=== PATIENT | female | born 1975 | race Caucasian/White ===

== ENCOUNTER 2019-06-09 10:17 | Emergency (ER) | payer MEDICAID, OTHER ==
[~2019-06-09] VITALS: Ht 162.6 cm; Wt 54.5 kg
[~2019-06-09 10:17] MED LIST: CARB200T PO; CHLO25TA22 PO; CLIN-90 PO; CLIN150C8 PO; DIAZ10TA4 PO; GABA600T13 PO; HYDR-4353 PO; HYDR-4383 PO; METH-350 PO; MIRT15TA PO; ONDA4TAB12 PO; ONDA8TAB13 PO; PRAZ2CAP2 PO; RANI150C4 PO; TERA1CAP4 PO; TOP100T PO; VENL75TA4 PO; ZOLP10TA PO
[2019-06-09 10:31] VITALS: BP 138/77
[2019-06-09] MEDS ORDERED: penicillin G benzathine 1.2 million unit/2ml syringe IM ONE (12:40)
[2019-06-09] MEDS ORDERED: azithromycin 250mg tablet PO ONE (12:40)
[2019-06-09] MEDS ORDERED: acetaminophen 325mg tablet PO ONE (12:45)
[2019-06-09] MEDS ORDERED: LIDOcaine Viscous 15ml cup MM PRN (13:20)
--- NOTE | 2019-06-09 13:30 | NUR ---
PT requesting to wait before recieving second Penicillin injection, as she "cannot tolerate anymore" at the moment.
[2019-06-09 14:29] LABS: HIV ANTIBODY 1&2 RAPID NON-REACTIVE (Neg)
[2019-06-09 14:51] LABS: CLARITY,URINE CLOUDY (Clear); COLOR,URINE YELLOW (Yellow); GLUCOSE, URINE NEGATIVE (Neg); KETONES,URINE NEGATIVE (Neg); LEUKOCYTE ESTERASE ,URINE LARGE (Neg); NITRITES, URINE POSITIVE (Neg); OCCULT BLOOD,URINE SMALL (Neg); PH,URINE 5.5 (4.8-8.0); PROTEIN,URINE NEGATIVE (Neg); URINE HCG NEGATIVE (NEG)
[2019-06-09 14:52] LABS: UA COLLECTION TYPE CLN CATCH MIDSTREAM
--- NOTE | 2019-06-09 14:59 | NUR ---
Obtained new phone number to contact pt for results. Primary number is [phone] and an alternate as [phone]
[2019-06-09 15:06] LABS: BACTERIA,URINE 4+ /HPF (Neg); MUCUS STRANDS NONE SEEN /LPF (Neg); RBC,URINE NONE SEEN /HPF (0-2); SQUAMOUS EPITHELIAL CELL,UR MANY /LPF (FEW); WBC,URINE 50-100 /HPF (0-4)
[2019-06-11 09:09] LABS: RPR Reactive (Non Reactive)
== END 2019-06-09 15:00 | disposition home or self-care (01) ==
LOC: ER 10:18
DX: Z11.3 Encounter for screening for infections with a predominantly sexual mode of transmission (principal); R10.2 Pelvic and perineal pain; R21 Rash and other nonspecific skin eruption; J45.909 Unspecified asthma, uncomplicated; G89.29 Other chronic pain; F41.9 Anxiety disorder, unspecified; F12.90 Cannabis use, unspecified, uncomplicated; F15.90 Other stimulant use, unspecified, uncomplicated; Z87.442 Personal history of urinary calculi; Z86.14 Personal history of Methicillin resistant Staphylococcus aureus infection; Z86.69 Personal history of other diseases of the nervous system and sense organs; Z90.49 Acquired absence of other specified parts of digestive tract; Z98.51 Tubal ligation status; Z59.0 Homelessness; Z88.6 Allergy status to analgesic agent; Z88.5 Allergy status to narcotic agent; Z88.8 Allergy status to other drugs, medicaments and biological substances; Z79.899 Other long term (current) drug therapy
CPT/HCPCS: 36415; 81001; 81025; 86592; 86703; 87252; 87491; 87591; 96372; 99284; J0561

== ENCOUNTER 2021-03-24 16:45 | Emergency (ER) | payer MEDICAID, OTHER ==
[~2021-03-24] VITALS: Ht 162.6 cm; Wt 54.5 kg
[~2021-03-24 16:45] MED LIST changes: -CLIN-90 PO; +CLIN-97 PO; +MIRT-116 PO; -MIRT15TA PO
[2021-03-24] MEDS ORDERED: dexamethasone 4mg tablet PO ONE ×2 (19:00→19:05)
[2021-03-24] MEDS ORDERED: DEXAMETHASONE 6 MG TABLET PO ONE (19:05)
[2021-03-24] MEDS ORDERED: HYDR-3972 PO (19:12)
[2021-03-24] MEDS ORDERED: DOXY-135 PO (19:12)
[2021-03-24 19:29] VITALS: BP 138/80
== END 2021-03-24 19:31 | disposition home or self-care (01) ==
LOC: ER 16:46
DX: S71.101D Unspecified open wound, right thigh, subsequent encounter (principal); J45.909 Unspecified asthma, uncomplicated; G89.29 Other chronic pain; F41.9 Anxiety disorder, unspecified; F12.90 Cannabis use, unspecified, uncomplicated; F15.90 Other stimulant use, unspecified, uncomplicated; Z87.442 Personal history of urinary calculi; Z86.14 Personal history of Methicillin resistant Staphylococcus aureus infection; Z86.69 Personal history of other diseases of the nervous system and sense organs; Z90.89 Acquired absence of other organs; Z98.51 Tubal ligation status; Z59.0 Homelessness; Z88.8 Allergy status to other drugs, medicaments and biological substances; Z88.2 Allergy status to sulfonamides; Z88.5 Allergy status to narcotic agent; Z88.6 Allergy status to analgesic agent; Z79.2 Long term (current) use of antibiotics; Z79.899 Other long term (current) drug therapy; X58.XXXD Exposure to other specified factors, subsequent encounter
CPT/HCPCS: 99283; J8540

== ENCOUNTER 2022-11-18 06:15 | Emergency (ER) | payer MEDICAID ==
[~2022-11-18] VITALS: Ht 162.6 cm; Wt 47.2 kg
[~2022-11-18 06:15] MED LIST changes: -CHLO25TA22 PO; +CHLO25TA68 PO; +NALO4SPR BOTHNARES
[2022-11-18] MEDS ORDERED: clindamycin 150mg capsule PO ONE (07:25)
[2022-11-18] MEDS ORDERED: LIDOcaine 1% (10mg/ml) 2ml vial SQ STA (07:25)
[2022-11-18] MEDS ORDERED: acetaminophen 325mg tablet PO ONE (07:25)
[2022-11-18] MEDS ORDERED: LORazepam 1 MG tablet PO ONE (07:55)
[2022-11-18 08:17] LABS: BASOPHILS % (AUTO) 0.4 % (0-1); EOSINOPHILS # (AUTO) 0.1 X10'3 (0-0.9); EOSINOPHILS % (AUTO) 0.9 % (0-6); HEMATOCRIT 39.7 % (35.0-45.0); HEMOGLOBIN 13.3 g/dl (12.0-16.0); LYMPHOCYTES # (AUTO) 1.8 X10'3 (1.1-4.8); LYMPHOCYTES % (AUTO) 21.6 % (21-51); MEAN CORPUSCULAR HEMOGLOBIN 28.2 PG (27.0-31.0); MEAN CORPUSCULAR HGB CONC 33.6 g/dL (33.0-36.5); MEAN CORPUSCULAR VOLUME 83.9 FL (78-98); MEAN PLATELET VOLUME 9.5 FL (7.4-10.4); MONOCYTES # (AUTO) 0.9 X10'3 (0-0.9); MONOCYTES % (AUTO) 11.3 % (2-12); NEUTROPHILS # (AUTO) 5.4 X10'3 (1.8-7.7); NEUTROPHILS % (AUTO) 65.8 % (42-75); PLATELET COUNT 200 X10'3 (140-440); RED BLOOD COUNT 4.73 X10'6 (4.20-5.60); RED CELL DISTRIBUTION WIDTH 15.6 % (11.5-14.5); WHITE BLOOD COUNT 8.1 X10'3 (4.5-11.0)
[2022-11-18 08:34] LABS: ALANINE AMINOTRANSFERASE 19 U/L (12-78); ALBUMIN 3.2 G/DL (3.4-5.0); ALBUMIN/GLOBULIN RATIO 0.8 (1.1-1.5); ALKALINE PHOSPHATASE 85 IU/L (46-116); ANION GAP 6 (8-16); ASPARTATE AMINO TRANSFERASE 11 U/L (10-37); BILIRUBIN,TOTAL 1.1 MG/DL (0.1-1.0); BLOOD UREA NITROGEN 7 MG/DL (7-18); BUN/CREATININE RATIO 12.1 (10.0-20.0); CALCIUM 9.2 MG/DL (8.5-10.1); CHLORIDE 101 MMOL/L (99-107); CREATININE 0.58 MG/DL (0.40-0.90); GLUCOSE 103 MG/DL (70-104); POTASSIUM 3.8 MMOL/L (3.5-5.1); SODIUM 135 MMOL/L (135-145); TOTAL CARBON DIOXIDE 28.2 MMOL/L (24-32); eGFR > 90 ML/MIN
[2022-11-18] MEDS ORDERED: CLIN150C2 PO (08:46)
[2022-11-18] MEDS ORDERED: CLINDAMYCIN 600mg IN NS 50ML 50 ML IV STA (09:12)
[2022-11-18 09:17] VITALS: BP 108/72
[2022-11-18] MEDS ORDERED: clindamycin 600mg/D5W 50ml 0 ML IV ONE (09:25)
[2022-11-18] MEDS ORDERED: CLINDAMYCIN IV ONE (09:30)
[2022-11-18] MEDS ORDERED: [UNRECOGNIZED DRUG - OTHER] IV ONE (09:30)
[2022-11-18] MEDS ORDERED: ibuprofen tablet 400 MG TABLET PO ONE (09:45)
== END 2022-11-18 10:17 | disposition home or self-care (01) ==
LOC: ER 06:16
DX: L03.213 Periorbital cellulitis (principal); J44.9 Chronic obstructive pulmonary disease, unspecified; F12.90 Cannabis use, unspecified, uncomplicated; F15.20 Other stimulant dependence, uncomplicated; R11.2 Nausea with vomiting, unspecified; Z59.00 Homelessness unspecified; Z88.5 Allergy status to narcotic agent; Z88.6 Allergy status to analgesic agent; Z88.2 Allergy status to sulfonamides; Z91.041 Radiographic dye allergy status; Z98.51 Tubal ligation status
CPT/HCPCS: 10060; 36415; 71045; 80053; 83605; 84484; 85025; 93005; 96365; 99285; J3490; J7030; A6410; A6449

== ENCOUNTER 2023-05-02 20:24 | Inpatient (IN) | payer MEDICAID, OTHER ==
[~2023-05-02] VITALS: Ht 162.6 cm; Wt 50.0 kg
[~2023-05-02 20:24] MED LIST changes: +CLIN-214 PO; -CLIN150C8 PO; -MIRT-116 PO; +MIRT-142 PO
[2023-05-02] MEDS ORDERED: HYDROcodone/acetaminophen 10/325mg tab PO STA (20:29)
[2023-05-02] MEDS ORDERED: piperacillin/tazo 3.375gm/50ml 50 ML IV STA (20:33)
[2023-05-02] MEDS ORDERED: vancomycin/NS 1 GM ADD-VANTAGE 250 ML IV ONE (20:35)
[2023-05-02] MEDS ORDERED: normal saline 1000ML IV soln IVB ONE ×2 (21:50)
[2023-05-02 22:41] LABS: BASOPHILS # (AUTO) 0.1 X10'3 (0-0.2); BASOPHILS % (AUTO) 0.7 % (0-1); EOSINOPHILS # (AUTO) 0.1 X10'3 (0-0.9); EOSINOPHILS % (AUTO) 0.5 % (0-6); HEMATOCRIT 40.4 % (35.0-45.0); HEMOGLOBIN 13.2 g/dl (12.0-16.0); LYMPHOCYTES # (AUTO) 2.1 X10'3 (1.1-4.8); LYMPHOCYTES % (AUTO) 19.1 % (21-51); MEAN CORPUSCULAR HEMOGLOBIN 28.1 PG (27.0-31.0); MEAN CORPUSCULAR HGB CONC 32.7 g/dL (33.0-36.5); MEAN CORPUSCULAR VOLUME 85.7 FL (78-98); MEAN PLATELET VOLUME 8.9 FL (7.4-10.4); MONOCYTES # (AUTO) 0.8 X10'3 (0-0.9); MONOCYTES % (AUTO) 7.8 % (2-12); NEUTROPHILS # (AUTO) 7.7 X10'3 (1.8-7.7); NEUTROPHILS % (AUTO) 71.9 % (42-75); PLATELET COUNT 309 X10'3 (140-440); RED BLOOD COUNT 4.71 X10'6 (4.20-5.60); RED CELL DISTRIBUTION WIDTH 14.2 % (11.5-14.5); WHITE BLOOD COUNT 10.8 X10'3 (4.5-11.0)
[2023-05-02 22:49] LABS: ALANINE AMINOTRANSFERASE 27 U/L (12-78); ALBUMIN/GLOBULIN RATIO 0.6 (1.1-1.5); ALKALINE PHOSPHATASE 96 IU/L (46-116); ANION GAP 6 (8-16); ASPARTATE AMINO TRANSFERASE 24 U/L (10-37); BILIRUBIN,TOTAL 1.3 MG/DL (0.1-1.0); BLOOD UREA NITROGEN 9 MG/DL (7-18); BUN/CREATININE RATIO 15.5 (10.0-20.0); CALCIUM 9.8 MG/DL (8.5-10.1); CHLORIDE 101 MMOL/L (99-107); CREATININE 0.58 MG/DL (0.40-0.90); GLUCOSE 141 MG/DL (70-104); MAGNESIUM 2.2 MG/DL (1.5-2.4); SODIUM 134 MMOL/L (135-145); TOTAL CARBON DIOXIDE 27.2 MMOL/L (24-32); TOTAL PROTEIN 7.7 G/DL (6.4-8.2); eCRCL 95 ML/MIN; eGFR > 90 ML/MIN
[2023-05-02 23:00] LABS: POTASSIUM 2.7 MMOL/L (3.5-5.1)
[2023-05-02] MEDS ORDERED: POTASSIUM BICARB 20meq eff tab 20 MEQ TABLET.EFF PO STA (23:01)
[2023-05-02] MEDS ORDERED: HYDROcodone/acetaminophen 10/325mg tab PO ONE (23:20)
[2023-05-03 01:31] LABS: URINE HCG NEGATIVE (NEG)
[2023-05-03 01:38] LABS: BILIRUBIN,URINE NEGATIVE (Neg); COLOR,URINE YELLOW (Yellow); GLUCOSE, URINE NEGATIVE (Neg); KETONES,URINE NEGATIVE (Neg); LEUKOCYTE ESTERASE ,URINE TRACE (Neg); NITRITES, URINE POSITIVE (Neg); OCCULT BLOOD,URINE NEGATIVE (Neg); PH,URINE 6.5 (4.8-8.0); PROTEIN,URINE NEGATIVE (Neg)
[2023-05-03 01:45] LABS: UA COLLECTION TYPE CLN CATCH MIDSTREAM
[2023-05-03 01:47] LABS: CLARITY,URINE SLIGHTLY CLOUDY (Clear)
[2023-05-03 01:48] LABS: BACTERIA,URINE 2+ /HPF (Neg); SQUAMOUS EPITHELIAL CELL,UR FEW /LPF (FEW); WBC CLUMPS,URINE FEW /HPF (NEGATIVE)
[2023-05-03 01:50] LABS: URINE AMPHETAMINE SCREEN POSITIVE (Neg); URINE BARBITUATE SCREEN NEGATIVE (Neg); URINE BENZODIAZEPINES SCREEN NEGATIVE (Neg); URINE CANNABINOID SCREEN NEGATIVE (Neg); URINE COCAINE SCREEN NEGATIVE (Neg); URINE OPIATE SCREEN POSITIVE (Neg); URINE PHENCYCLIDINE SCREEN NEGATIVE (Neg)
[2023-05-03] MEDS ORDERED: nicotine 21mg patch - 24 hr TD ONE (02:55)
[2023-05-03] MEDS ORDERED: HYDROmorphone inj. 0.5 MG/0.5 ML DISP.SYRIN IV PRN (03:15)
[2023-05-03] MEDS ORDERED: metoclopramide 5 mg/ml inj IV PRN (03:50)
[2023-05-03] MEDS ORDERED: ondansetron/PF 4mg/2ml inj IV PRN (03:50)
[2023-05-03] MEDS ORDERED: acetaminophen 325mg tablet PO PRN (03:50)
[2023-05-03] MEDS ORDERED: magnesium hydroxide 30ml (MOM) UD suspension PO PRN (03:50)
[2023-05-03] MEDS ORDERED: mag hydrox/Alum hydrox/simeth 30ml oral suspension PO PRN (03:50)
[2023-05-03] MEDS ORDERED: acetaminophen 650mg rectal suppository RC PRN (03:50)
[2023-05-03] MEDS ORDERED: diphenhydrAMINE 25mg capsule PO PRN (03:50)
[2023-05-03] MEDS ORDERED: ondansetron 4mg rapidly disintigrating tab PO PRN (03:50)
[2023-05-03] MEDS ORDERED: potassium Cl 40MEQ/1/2NS 520ml 520 ML IV PRN (03:50)
[2023-05-03] MEDS ORDERED: diphenhydrAMINE 50 mg/ml inj IV PRN (03:50)
[2023-05-03] MEDS ORDERED: bisacodyl 10mg suppository rectal RC PRN (03:50)
[2023-05-03] MEDS ORDERED: piperacillin/tazo 4.5gm/100ml 100 ML IV SCH (04:00)
[2023-05-03] MEDS ORDERED: TETanus/Pertussis (Acell)/Diphther VAC/PF (Tdap-Adult) 0.5ml syringe IMVAC ONE (04:05)
[2023-05-03] MEDS: potassium Cl 20mEq in NS 1,000 ML IV SCH ×2 (04:26→13:50)
[2023-05-03] MEDS ORDERED: temazepam 15mg capsule PO STA (04:34)
[2023-05-03] MEDS: HYDROmorphone 1 mg/ml syringe IV PRN ×4 (06:17→19:53)
--- NOTE | 2023-05-03 07:45 | NUR ---
Paged Dr. Jeremiah Sanchez RN RE: Yancy Cohen. Just want to follow up if this patient had surgical consultation yet. Right index finger is pale, tender, swollen, no sensation on the right index finger, and blackish in color .
[2023-05-03] MEDS ORDERED: vancomycin/NS 1 GM ADD-VANTAGE 250 ML IV SCH (08:00)
[2023-05-03] MEDS: nicotine 21mg patch - 24 hr TD SCH (08:00)
[2023-05-03] MEDS: K and/or MAG REPLACEMENT MC SCH ×2 (08:00→20:37)
[2023-05-03 08:15] LABS: APTT 30 SECONDS (22-32); INR 0.9 INR; PROTHROMBIN TIME 10.1 SECONDS (9.0-12.0)
[2023-05-03 08:32] LABS: MAGNESIUM 1.9 MG/DL (1.5-2.4); PHOSPHORUS 3.6 MG/DL (2.3-4.5); POTASSIUM 3.2 MMOL/L (3.5-5.1)
[2023-05-03] MEDS: ampicill/sulbac 1.5gm/NS 100ml 100 ML IV SCH ×3 (08:40→19:42)
[2023-05-03] MEDS: docusate sod 100mg capsule PO SCH ×2 (08:44→19:42)
--- NOTE | 2023-05-03 11:59 | NUR ---
Attempted to call for report to the floor, I was told that this patient has not assigned yet to a nurse.
--- NOTE | 2023-05-03 12:17 | NUR ---
DR. BERGMAN CALLED FOR CONDITION REPORT AND TO SEE IF PATIENT IS NPO. PATIENT IS EATING GUMMY BEARS AND STATES SHE DID NOT KNOW THAT SHE WAS NPO. DR. BERGMAN STATES THAT WE SHOULD KEEP PATIENT NPO AFTER MIDNIGHT AND WILL BE GOING TO SURGERY IN THE MORNING. PATIENT INFORMED OF THIS STATUS AND THAT SHE CAN EAT UNTIL MIDNIGHT TONIGHT.
--- NOTE | 2023-05-03 12:37 | NUR ---
Note navin in EDM - 05/03/23 at 1240 by ROSMERY I called Angio/IR to follow up regarding order for arthrocentesis that was ordered. Spencer and Black at IR both told me that the order category should say angio for them to do it. I was advised to pick the arthrogram and make a side comment about the arthrocentesis
--- NOTE | 2023-05-03 13:40 | NUR ---
Received order for consult. Tried to meet with patient and unable to wake her. I will try again.
--- NOTE | 2023-05-03 14:00 | NUR ---
Patient in room ORTHO 4017. I have received report from Judit BELL and had the opportunity to ask questions and assume patient care.
[2023-05-03] MEDS ORDERED: NO HOME MEDS (15:05)
[2023-05-03 15:55] VITALS: BP 114/70; PULSE 99; RESP 16; TEMP 99.1; O2SAT 100
[2023-05-03 15:56] VITALS: RESP 16; O2SAT 100
--- NOTE | 2023-05-03 17:21 | NUR ---
rm [id number] rayna maddox ext [phone] Pt is extremely anxious can I get something for anxiety? Thanks Charlene
[2023-05-03] MEDS ORDERED: LORazepam 1 MG tablet PO ONE (17:25)
[2023-05-03 18:00] VITALS: BP 103/58; PULSE 97; RESP 16; TEMP 98.3; O2SAT 100
[2023-05-03 20:00] VITALS: RESP 16; O2SAT 100
[2023-05-03 22:00] VITALS: BP 121/64; PULSE 98; RESP 18; TEMP 98.2; O2SAT 100
[2023-05-03] MEDS: temazepam 15mg capsule PO PRN (23:41)
[2023-05-03] MEDS: potassium Cl 20 mEq SR tablet PO PRN (23:41)
[2023-05-03] MEDS: acetaminophen 325mg tablet PO PRN (23:42)
[2023-05-04] VITALS (20 sets, daily range): BP systolic 103–150; BP diastolic 54–91; PULSE 69–100; RESP 12–18; TEMP 97.9–98.8; O2SAT 93–100
[2023-05-04] MEDS: potassium Cl 20mEq in NS 1,000 ML IV SCH ×3 (00:15→19:50)
[2023-05-04] MEDS: HYDROmorphone 1 mg/ml syringe IV PRN ×5 (00:15→22:14)
[2023-05-04] MEDS: ampicill/sulbac 1.5gm/NS 100ml 100 ML IV SCH ×4 (02:04→20:49)
[2023-05-04 05:52] LABS: BASOPHILS % (AUTO) 0.5 % (0-1); EOSINOPHILS # (AUTO) 0.1 X10'3 (0-0.9); EOSINOPHILS % (AUTO) 0.9 % (0-6); HEMATOCRIT 39.4 % (35.0-45.0); LYMPHOCYTES # (AUTO) 2.1 X10'3 (1.1-4.8); LYMPHOCYTES % (AUTO) 22.7 % (21-51); MEAN CORPUSCULAR HEMOGLOBIN 28.1 PG (27.0-31.0); MEAN CORPUSCULAR VOLUME 85.2 FL (78-98); MEAN PLATELET VOLUME 9.3 FL (7.4-10.4); MONOCYTES # (AUTO) 0.9 X10'3 (0-0.9); MONOCYTES % (AUTO) 9.5 % (2-12); NEUTROPHILS # (AUTO) 6.2 X10'3 (1.8-7.7); NEUTROPHILS % (AUTO) 66.4 % (42-75); PLATELET COUNT 338 X10'3 (140-440); RED BLOOD COUNT 4.63 X10'6 (4.20-5.60); RED CELL DISTRIBUTION WIDTH 14.2 % (11.5-14.5); WHITE BLOOD COUNT 9.4 X10'3 (4.5-11.0)
[2023-05-04 05:58] LABS: PRE OP PARTIAL THROMB. TIME 31 SECONDS (22-32); PROTHROMBIN TIME 10.5 SECONDS (9.0-12.0)
[2023-05-04 06:00] LABS: ALBUMIN 2.9 G/DL (3.4-5.0); ALBUMIN/GLOBULIN RATIO 0.6 (1.1-1.5); ALKALINE PHOSPHATASE 96 IU/L (46-116); BLOOD UREA NITROGEN 8 MG/DL (7-18); BUN/CREATININE RATIO 19.5 (10.0-20.0); CALCIUM 9.5 MG/DL (8.5-10.1); CHLORIDE 105 MMOL/L (99-107); CREATININE 0.41 MG/DL (0.40-0.90); PRE OP ALT 25 U/L (30-65); PRE OP ANION GAP 8 (8-16); PRE OP AST 17 U/L (10-37); PRE OP BILIRUB, TOTAL 0.7 MG/DL (0.0-1.0); PRE OP GLUCOSE 95 MG/DL (70-104); PRE OP SODIUM 137 MMOL/L (135-145); TOTAL PROTEIN 7.4 G/DL (6.4-8.2); eCRCL 134 ML/MIN; eGFR > 90 ML/MIN
[2023-05-04 06:10] LABS: PRE OP POTASSIUM 3.3 MMOL/L (3.4-5.1)
--- NOTE | 2023-05-04 06:34 | NUR ---
Problems reprioritized. Patient report given, questions answered & plan of care reviewed with ANA BELL.
[2023-05-04] MEDS: docusate sod 100mg capsule PO SCH ×2 (07:30→20:00)
[2023-05-04] MEDS: nicotine 21mg patch - 24 hr TD SCH (07:33)
[2023-05-04] MEDS: potassium Cl 20 mEq SR tablet PO PRN ×3 (07:34→19:54)
[2023-05-04] MEDS: K and/or MAG REPLACEMENT MC SCH ×2 (08:00→20:47)
--- NOTE | 2023-05-04 09:44 | NUR ---
Malnutrition consult: Pt reports 2-13 lb wt loss with decreased appetite/PO intake per malnutrition risk screen with RN. Current scaled weight is +2.8 kg from most recent scaled wt hx in EMR of 47.2 kg 11/18-no apparent wt loss. Pt on a regular diet and eating well, documented with 100% PO intake. Only documented mild decrease in muscle strength and trace edema is to right hand where pt has an abscess/cellulitis. Pt appears well developed well nourished per physician notes. Pt currently lacks a minimum of two criteria for malnutrition. Will continue to follow and monitor s/s of malnutrition. Addendum: 05/04/23 at [address] Amended: Links added.
[2023-05-04] MEDS ORDERED: LORazepam 2 mg/ml vial IV ONE (13:10)
--- NOTE | 2023-05-04 16:54 | NUR ---
Patient report called to OR. K has been replaced fully today. Patient with Pacheco patch on left upper arm. LR hanging.
[2023-05-04] MEDS ORDERED: BUPIVAcaine/PF 2.5mg/ml (0.25%) 10ml vial ONE (16:58)
--- NOTE | 2023-05-04 18:50 | NUR ---
Patient in room ORTHO 4017. I have received report from ANA BELL and had the opportunity to ask questions and assume patient care.
--- NOTE | 2023-05-04 18:52 | NUR ---
PATIENT TAKE TO OR
[2023-05-04] MEDS ORDERED: sevoflurane 250ml liquid IH ONE (19:16)
[2023-05-04] MEDS ORDERED: fentaNYL/PF 50MCG/1 ML 2ML syringe ONE ×2 (19:19→19:30)
[2023-05-04] MEDS ORDERED: propofol inj 20 ML IV ONE (19:19)
[2023-05-04] MEDS ORDERED: midazolam 1 mg/ML 2ml injection ONE (19:19)
--- NOTE | 2023-05-04 20:04 | NUR ---
Received from OR via , accompanied by Anesthesiologist SALEEM and report given by Anesthesiolgist. PT AWAKE AND MOANING, ANESTHESIA GAVE PAIN MED. MOVING EXT X 4, LEFT HAND PIV 20G WITH LR 100ML/HR, RIGHT FA 22G SL, RIGHT INDEX FINGER WITH KERLIX AND KELI.
[2023-05-04] MEDS ORDERED: ondansetron/PF 4mg/2ml inj IV PRN (20:15)
[2023-05-04] MEDS ORDERED: ringers solution, lacted 1,000 ML IV SCH (20:15)
[2023-05-04] MEDS ORDERED: meperidine/PF 25mg/ml syringe IV PRN ×3 (20:15)
[2023-05-04] MEDS ORDERED: HYDROmorphone/PF 0.2 MG/ML SYRINGE IV PRN (20:15)
[2023-05-04] MEDS: HYDROmorphone/PF 0.2 MG/ML SYRINGE IV PRN ×2 (20:28→20:42)
--- NOTE | 2023-05-04 20:32 | NUR ---
Report called to receiving nurse. Transferred via BED Belongings . Special Issues communicated to receiving nurse PRUDENCE. PT IS AWAKE, ALERT, APPEARING MORE COMFORTABLE NOTED BY IMPROVED VS AND NOT WRITHING IN BED, DRESSING ON RIGHT INDEX CD, PIV PATENT, DAWOOD FLUIDS, PT MEETS DISCHARGE CRITERIA.
--- NOTE | 2023-05-04 20:40 | NUR ---
PATIENT BACK FROM OR. VS STABLE AND WILL CONTINUE TO MONITOR.
[2023-05-04] MEDS: temazepam 15mg capsule PO PRN (22:13)
[2023-05-04] MEDS: acetaminophen 325mg tablet PO PRN (23:31)
[2023-05-05] VITALS (7 sets, daily range): BP systolic 125–139; BP diastolic 70–82; PULSE 76–95; RESP 16–18; TEMP 97.9–99.1; O2SAT 95–100
[2023-05-05] MEDS: HYDROmorphone 1 mg/ml syringe IV PRN ×2 (00:26→05:05)
[2023-05-05] MEDS: potassium Cl 20mEq in NS 1,000 ML IV SCH ×2 (00:26→14:31)
[2023-05-05] MEDS: ampicill/sulbac 1.5gm/NS 100ml 100 ML IV SCH ×4 (02:08→20:37)
[2023-05-05 06:24] LABS: BASOPHILS # (AUTO) 0.1 X10'3 (0-0.2); BASOPHILS % (AUTO) 0.7 % (0-1); EOSINOPHILS # (AUTO) 0.1 X10'3 (0-0.9); EOSINOPHILS % (AUTO) 1.2 % (0-6); HEMATOCRIT 39.1 % (35.0-45.0); HEMOGLOBIN 12.9 g/dl (12.0-16.0); LYMPHOCYTES # (AUTO) 1.8 X10'3 (1.1-4.8); LYMPHOCYTES % (AUTO) 18.7 % (21-51); MEAN CORPUSCULAR HEMOGLOBIN 28.6 PG (27.0-31.0); MEAN CORPUSCULAR HGB CONC 33.1 g/dL (33.0-36.5); MEAN CORPUSCULAR VOLUME 86.3 FL (78-98); MEAN PLATELET VOLUME 8.6 FL (7.4-10.4); MONOCYTES # (AUTO) 0.7 X10'3 (0-0.9); MONOCYTES % (AUTO) 7.5 % (2-12); NEUTROPHILS # (AUTO) 6.8 X10'3 (1.8-7.7); NEUTROPHILS % (AUTO) 71.9 % (42-75); PLATELET COUNT 347 X10'3 (140-440); RED BLOOD COUNT 4.53 X10'6 (4.20-5.60); RED CELL DISTRIBUTION WIDTH 14.1 % (11.5-14.5); WHITE BLOOD COUNT 9.5 X10'3 (4.5-11.0)
--- NOTE | 2023-05-05 06:25 | NUR ---
Patient in room ORTHO 4017. I have received report from ARABELLA Ames and had the opportunity to ask questions and assume patient care.
[2023-05-05 06:45] LABS: ALANINE AMINOTRANSFERASE 16 U/L (12-78); ALBUMIN 2.6 G/DL (3.4-5.0); ALBUMIN/GLOBULIN RATIO 0.6 (1.1-1.5); ALKALINE PHOSPHATASE 92 IU/L (46-116); ANION GAP 8 (8-16); ASPARTATE AMINO TRANSFERASE 11 U/L (10-37); BILIRUBIN,TOTAL 0.6 MG/DL (0.1-1.0); BLOOD UREA NITROGEN 8 MG/DL (7-18); BUN/CREATININE RATIO 15.1 (10.0-20.0); CALCIUM 9.3 MG/DL (8.5-10.1); CHLORIDE 105 MMOL/L (99-107); CREATININE 0.53 MG/DL (0.40-0.90); GLUCOSE 136 MG/DL (70-104); POTASSIUM 3.8 MMOL/L (3.5-5.1); SODIUM 135 MMOL/L (135-145); TOTAL PROTEIN 7.1 G/DL (6.4-8.2); eCRCL 104 ML/MIN; eGFR > 90 ML/MIN
--- NOTE | 2023-05-05 06:47 | NUR ---
Problems reprioritized. Patient report given, questions answered & plan of care reviewed with TIAN GLYNN.
[2023-05-05] MEDS: docusate sod 100mg capsule PO SCH ×2 (07:32→20:00)
[2023-05-05] MEDS: nicotine 21mg patch - 24 hr TD SCH (07:32)
[2023-05-05] MEDS: K and/or MAG REPLACEMENT MC SCH ×2 (08:00→20:00)
[2023-05-05] MEDS: HYDROmorphone/PF 0.2 MG/ML SYRINGE IV PRN (08:26)
[2023-05-05] MEDS ORDERED: HYDROmorphone 1 mg/ml syringe IV ONE (09:35)
[2023-05-05] MEDS: HYDROmorphone inj. 0.5 MG/0.5 ML DISP.SYRIN IV PRN ×2 (14:07→20:34)
--- NOTE | 2023-05-05 18:25 | NUR ---
Problems reprioritized. Patient report given, questions answered & plan of care reviewed with GRETTA Valdes.
--- NOTE | 2023-05-05 18:30 | NUR ---
Received report from Baldo GLYNN and assumed care of patient
[2023-05-05] MEDS: HYDROcodone/acetaminophen 10/325mg tab PO PRN ×2 (18:57→23:04)
--- NOTE | 2023-05-05 19:36 | NUR ---
Pt reporting intense anxiety, requesting PRN medication. Spoke with Dr. Charlton by telephone and received order for Ativan 0.5mg Q8H PRN
[2023-05-05] MEDS: LORazepam 0.5 MG tablet PO PRN (20:09)
[2023-05-05] MEDS: temazepam 15mg capsule PO PRN (23:07)
[2023-05-06] MEDS: HYDROmorphone inj. 0.5 MG/0.5 ML DISP.SYRIN IV PRN (00:57)
[2023-05-06] MEDS: potassium Cl 20mEq in NS 1,000 ML IV SCH ×2 (01:01→11:50)
[2023-05-06] MEDS: ampicill/sulbac 1.5gm/NS 100ml 100 ML IV SCH ×3 (02:05→14:00)
[2023-05-06] MEDS: HYDROcodone/acetaminophen 10/325mg tab PO PRN ×3 (03:14→14:00)
[2023-05-06] MEDS: HYDROmorphone 1 mg/ml syringe IV PRN ×3 (04:44→15:34)
[2023-05-06 06:00] VITALS: BP 143/89; PULSE 93; RESP 17; TEMP 98.9; O2SAT 100
[2023-05-06 06:41] LABS: LYMPHOCYTES # (AUTO) 2.6 X10'3 (1.1-4.8); MEAN CORPUSCULAR HEMOGLOBIN 28.1 PG (27.0-31.0); MEAN CORPUSCULAR HGB CONC 33.1 g/dL (33.0-36.5); MEAN CORPUSCULAR VOLUME 84.9 FL (78-98); MEAN PLATELET VOLUME 8.4 FL (7.4-10.4); MONOCYTES # (AUTO) 0.6 X10'3 (0-0.9); NEUTROPHILS # (AUTO) 4.1 X10'3 (1.8-7.7)
[2023-05-06 06:43] LABS: BASOPHILS % (AUTO) 0.6 % (0-1); EOSINOPHILS # (AUTO) 0.1 X10'3 (0-0.9); EOSINOPHILS % (AUTO) 1.8 % (0-6); HEMATOCRIT 38.3 % (35.0-45.0); HEMOGLOBIN 12.7 g/dl (12.0-16.0); LYMPHOCYTES % (AUTO) 34.7 % (21-51); MONOCYTES % (AUTO) 8.3 % (2-12); NEUTROPHILS % (AUTO) 54.6 % (42-75); PLATELET COUNT 357 X10'3 (140-440); RED BLOOD COUNT 4.52 X10'6 (4.20-5.60); WHITE BLOOD COUNT 7.5 X10'3 (4.5-11.0)
--- NOTE | 2023-05-06 06:44 | NUR ---
Report to Lis BELL
[2023-05-06 07:03] LABS: ALANINE AMINOTRANSFERASE 17 U/L (12-78); ALBUMIN 2.5 G/DL (3.4-5.0); ALBUMIN/GLOBULIN RATIO 0.6 (1.1-1.5); ALKALINE PHOSPHATASE 85 IU/L (46-116); ANION GAP 7 (8-16); ASPARTATE AMINO TRANSFERASE 10 U/L (10-37); BILIRUBIN,TOTAL 0.4 MG/DL (0.1-1.0); BLOOD UREA NITROGEN 7 MG/DL (7-18); CHLORIDE 106 MMOL/L (99-107); GLUCOSE 96 MG/DL (70-104); POTASSIUM 3.7 MMOL/L (3.5-5.1); SODIUM 138 MMOL/L (135-145); TOTAL PROTEIN 6.8 G/DL (6.4-8.2); eCRCL 110 ML/MIN; eGFR > 90 ML/MIN
[2023-05-06] MEDS: docusate sod 100mg capsule PO SCH (08:00)
[2023-05-06] MEDS: K and/or MAG REPLACEMENT MC SCH (08:00)
[2023-05-06] MEDS: nicotine 21mg patch - 24 hr TD SCH (09:10)
[2023-05-06] MEDS: LORazepam 0.5 MG tablet PO PRN (10:48)
--- NOTE | 2023-05-06 12:52 | NUR ---
The following was taken from the patients H&P: This is a 48 year old female presents to ED for evaluation of dog bite to right index finger. History of methamphetamine use, chronic tobacco use, and fentanyl abuse, hypertension, COPD, CKD, chronic pain syndrome, GERD, seizure disorder, hepatitis C, migraine headaches, and prior dog bites. Her most recent lab shows: WBC 7.5, HGB 12.7, BUN 7, BG 96, and albumin 2.5. Urine toxicology report: positive for opiates, fentanyl, and amphetamines. Pt. was admitted for the management of a dog bite. Wound care in for skin assessment of right index finger cellulitis per nursing consult request. Pt. 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 Operative report: Pt. seen back at clinic, [facility] in 2 weeks for wound check and removal of her sutures. She is to keep her wound covered clean and dry until her follow up visit per operative report. Pt. does not require wound care at this time due to surgical intervention and no open wounds at this time.
[2023-05-06] MEDS ORDERED: HYDR-3972 PO (13:37)
[2023-05-06] MEDS ORDERED: LACTC PO (13:37)
[2023-05-06] MEDS ORDERED: AMOX-117 PO (13:37)
--- NOTE | 2023-05-06 14:30 | NUR ---
AGER ID: [phone] MESSAGE: Yancy Noel [id number] Cant discharge without wound care orders and shower orders from surgeon/ Doe. Unable to reach him and according to pt. he rounded early this AM. Lis [phone]
[2023-05-06 15:34] VITALS: RESP 16
--- NOTE | 2023-05-06 15:40 | NUR ---
Patient wants more Dilaudid, food to eat, new clothes, shoes, a ride [place], and some way to pay for her medications. SS contacted.
--- NOTE | 2023-05-06 18:01 | NUR ---
DISCHARGE NOTE: Reviewed discharge paperwork with pt. Discussed possible ASE of medications with pt. Pt. supplied with wound care supplies. She knows she needs to follow up with Dr. Doe in 2 weeks. Hospital will cover her meds except pain medication and pt. is aware. She can pay for her own pain medication. Prescriptions in hand. Discussed wound care and taught pt how to do it herself. Clean bandage applied. Reassured pt. as she was anxious to be independent- wanting staff to bathe her and comb her hair. Patient showered, provided bagged meal and clothes. Cab called. Pt. 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 Pt. knows to keep wound clean and dry. Written education provided on wound care and infection prevention. PIV DC'd, cannula intact, no s/sx bleeding, bandage applied.
--- NOTE | 2023-05-06 18:25 | NUR ---
PAGER ID: [phone] MESSAGE: Ynacy Cohen [id number] [facility] stated they are unable to fill probiotic for this already discharged pt. You would need to have ordered 30 capsules since they are OTC. Lis [phone]
== END 2023-05-06 16:23 | disposition home or self-care (01) | DRG 580 ==
LOC: ER 20:25 → ED HOLD 05-03 03:54 → EDBEDREQ 05-03 11:32 → ORTHO 4S 05-03 12:56
PROVIDERS: ADMIT Family Medicine; ATTEND Family Medicine
PROC: 0X6N0Z2 Detachment at Right Index Finger, Mid, Open Approach (ICD-10-PCS; principal; 2023-05-04 19:16)
DX: L02.511 Cutaneous abscess of right hand (principal); I96 Gangrene, not elsewhere classified; Z59.00 Homelessness unspecified; N39.0 Urinary tract infection, site not specified; M65.841 Other synovitis and tenosynovitis, right hand; L03.011 Cellulitis of right finger; J44.9 Chronic obstructive pulmonary disease, unspecified; M54.9 Dorsalgia, unspecified; F41.9 Anxiety disorder, unspecified; F17.210 Nicotine dependence, cigarettes, uncomplicated; E87.6 Hypokalemia; G89.4 Chronic pain syndrome; G40.909 Epilepsy, unspecified, not intractable, without status epilepticus; E86.1 Hypovolemia; G43.909 Migraine, unspecified, not intractable, without status migrainosus; F15.129 Other stimulant abuse with intoxication, unspecified; F11.129 Opioid abuse with intoxication, unspecified; K21.9 Gastro-esophageal reflux disease without esophagitis; N18.9 Chronic kidney disease, unspecified; I12.9 Hypertensive chronic kidney disease with stage 1 through stage 4 chronic kidney disease, or unspecified chronic kidney disease; S61.250A Open bite of right index finger without damage to nail, initial encounter; Z88.5 Allergy status to narcotic agent; Z88.2 Allergy status to sulfonamides; Z88.8 Allergy status to other drugs, medicaments and biological substances; Z91.041 Radiographic dye allergy status; W54.0XXA Bitten by dog, initial encounter; Y93.89 Activity, other specified; Z90.49 Acquired absence of other specified parts of digestive tract; Z98.51 Tubal ligation status; Y92.89 Other specified places as the place of occurrence of the external cause; Y99.8 Other external cause status
CPT/HCPCS: 96374; 99285; Z7506; 36415; 71045; 73130; 80053; 80305; 81001; 81025; 82948; 83605; 83735; 83880; 84100; 84132; 84145; 85025; 85610; 85651; 85730; 86140; 87040; 87070; 87075; 87077; 87081; 87088; 87186; 90715; A4618; A6223; A6446; A6449; A7000; G0378; J0295; J1170; J2060; J2175; J2250; J2543; J2704; J3010; J3370; J3480; J3490; J7030; J7040; J7120; Q0163

== ENCOUNTER 2024-10-20 09:03 | Emergency (ER) | payer MEDICAID ==
[~2024-10-20] VITALS: Ht 162.6 cm; Wt 48.6 kg
[~2024-10-20 09:03] MED LIST changes: -CARB200T PO; -CHLO25TA68 PO; -CLIN-214 PO; -CLIN-97 PO; -DIAZ10TA4 PO; -GABA600T13 PO; +HYDR-3972 PO; -HYDR-4353 PO; -HYDR-4383 PO; +LACTC PO; -METH-350 PO; -MIRT-142 PO; -NALO4SPR BOTHNARES; -ONDA4TAB12 PO; -ONDA8TAB13 PO; -PRAZ2CAP2 PO; -RANI150C4 PO; -TERA1CAP4 PO; -TOP100T PO; -VENL75TA4 PO; -ZOLP10TA PO
[2024-10-20 09:10] VITALS: BP 127/81; PULSE 80; TEMP 98.1; O2SAT 98
[2024-10-20 10:42] LABS: BILIRUBIN,URINE NEGATIVE (Neg); CLARITY,URINE SLIGHTLY CLOUDY (Clear); COLOR,URINE YELLOW (Yellow); GLUCOSE, URINE NEGATIVE (Neg); KETONES,URINE NEGATIVE (Neg); LEUKOCYTE ESTERASE ,URINE TRACE (Neg); NITRITES, URINE NEGATIVE (Neg); OCCULT BLOOD,URINE NEGATIVE (Neg); PROTEIN,URINE NEGATIVE (Neg); UROBILINOGEN,URINE 0.2 E.U/dL (0.2-1.0)
[2024-10-20 10:43] LABS: URINE HCG NEGATIVE (NEG)
[2024-10-20 10:46] LABS: UA COLLECTION TYPE CLN CATCH MIDSTREAM
[2024-10-20 10:49] LABS: BACTERIA,URINE 1+ /HPF (Neg); RENAL CELLS, URINE FEW /HPF; SQUAMOUS EPITHELIAL CELL,UR MODERATE /LPF (FEW); TRANSITIONAL EPI CELLS,URINE FEW /HPF; WBC,URINE 0-4 /HPF (0-4)
[2024-10-20] MEDS ORDERED: HYDR-3973 PO (12:13)
[2024-10-20 12:21] VITALS: RESP 16
[2024-10-20] MEDS: HYDROcodone/acetaminophen 5mg/325mg tablet PO ONE (12:21)
[2024-10-20] MEDS: CefTRIAXone 1000mg IM Kit (w/lidocaine diluent) IM ONE (12:32)
== END 2024-10-20 12:39 | disposition home or self-care (01) ==
LOC: ER 09:04
DX: S06.0X0A Concussion without loss of consciousness, initial encounter (principal); J44.9 Chronic obstructive pulmonary disease, unspecified; Z88.8 Allergy status to other drugs, medicaments and biological substances; Z88.2 Allergy status to sulfonamides; Z88.5 Allergy status to narcotic agent; Z98.51 Tubal ligation status; Z91.041 Radiographic dye allergy status; Z90.49 Acquired absence of other specified parts of digestive tract; Z98.890 Other specified postprocedural states; W19.XXXA Unspecified fall, initial encounter; Y93.89 Activity, other specified; Y92.89 Other specified places as the place of occurrence of the external cause; Y99.8 Other external cause status
CPT/HCPCS: 70450; 72125; 81001; 81025; 87088; 96372; 99285; J0696

== ENCOUNTER 2024-11-04 11:48 | Emergency (ER) | payer MEDICAID ==
[~2024-11-04] VITALS: Ht 162.6 cm; Wt 49.1 kg
[2024-11-04] MEDS: HYDROcodone/acetaminophen 5mg/325mg tablet PO ONE (13:50)
[2024-11-04] MEDS: ondansetron/PF 4mg/2ml inj IV ONE (15:36)
[2024-11-04] MEDS: HYDROmorphone inj. 0.5 MG/0.5 ML DISP.SYRIN IV ONE ×2 (15:36→19:19)
[2024-11-04 15:55] LABS: EOSINOPHILS # (AUTO) 0.1 X10'3 (0-0.9); HEMOGLOBIN 13.6 g/dl (12.0-16.0); MONOCYTES # (AUTO) 0.4 X10'3 (0-0.9)
[2024-11-04 15:56] LABS: EOSINOPHILS % (AUTO) 1.9 % (0-6); LYMPHOCYTES # (AUTO) 2.4 X10'3 (1.1-4.8); LYMPHOCYTES % (AUTO) 51.1 % (21-51); MEAN CORPUSCULAR HEMOGLOBIN 28.3 PG (27.0-31.0); MEAN CORPUSCULAR HGB CONC 33.3 g/dL (33.0-36.5); MEAN CORPUSCULAR VOLUME 85.1 FL (78-98); MEAN PLATELET VOLUME 9.7 FL (7.4-10.4); MONOCYTES % (AUTO) 8.1 % (2-12); NEUTROPHILS # (AUTO) 1.8 X10'3 (1.8-7.7); NEUTROPHILS % (AUTO) 37.9 % (42-75); PLATELET COUNT 224 X10'3 (140-440); RED BLOOD COUNT 4.82 X10'6 (4.20-5.60); RED CELL DISTRIBUTION WIDTH 14.7 % (11.5-14.5); WHITE BLOOD COUNT 4.7 X10'3 (4.5-11.0)
[2024-11-04 16:07] LABS: BILIRUBIN,URINE NEGATIVE (Neg); COLOR,URINE YELLOW (Yellow); GLUCOSE, URINE NEGATIVE (Neg); KETONES,URINE NEGATIVE (Neg); LEUKOCYTE ESTERASE ,URINE NEGATIVE (Neg); NITRITES, URINE NEGATIVE (Neg); OCCULT BLOOD,URINE NEGATIVE (Neg); PROTEIN,URINE NEGATIVE (Neg); UROBILINOGEN,URINE 0.2 E.U/dL (0.2-1.0)
[2024-11-04 16:10] LABS: ANION GAP 5 (8-16); BLOOD UREA NITROGEN 12 MG/DL (7-18); CHLORIDE 104 MMOL/L (99-107); GLUCOSE 83 MG/DL (70-104); POTASSIUM 3.9 MMOL/L (3.5-5.1); SODIUM 139 MMOL/L (135-145); TOTAL CARBON DIOXIDE 29.7 MMOL/L (24-32)
[2024-11-04 16:11] LABS: ALANINE AMINOTRANSFERASE 24 U/L (12-78); ALBUMIN 3.6 G/DL (3.4-5.0); ALBUMIN/GLOBULIN RATIO 1.1 (1.1-1.5); ALKALINE PHOSPHATASE 95 IU/L (46-116); ASPARTATE AMINO TRANSFERASE 11 U/L (10-37); BILIRUBIN,TOTAL 0.5 MG/DL (0.1-1.0); CALCIUM 8.9 MG/DL (8.5-10.1); eCRCL 89 ML/MIN; eGFR > 90 ML/MIN
[2024-11-04 16:18] LABS: CLARITY,URINE SLIGHTLY CLOUDY (Clear); UA COLLECTION TYPE CLN CATCH MIDSTREAM
[2024-11-04 16:19] LABS: PRO BRAIN NATRIURETIC PEPTIDE 270 PG/ML (0-125)
[2024-11-04 16:21] LABS: BACTERIA,URINE 1+ /HPF (Neg); MUCUS STRANDS MODERATE /LPF (Neg); RBC,URINE 0-2 /HPF (0-2); SQUAMOUS EPITHELIAL CELL,UR MODERATE /LPF (FEW); WBC,URINE 0-4 /HPF (0-4)
[2024-11-04] MEDS ORDERED: IBUP-862 PO (18:28)
[2024-11-04] MEDS ORDERED: METH-797 PO (18:28)
[2024-11-04] MEDS ORDERED: HYDR-3965 PO (18:28)
[2024-11-04 18:35] VITALS: BP 135/88; PULSE 88; TEMP 98.1; O2SAT 98
[2024-11-04 19:19] VITALS: RESP 18
== END 2024-11-04 19:22 | disposition home or self-care (01) ==
LOC: ER 11:48
DX: M79.18 Myalgia, other site (principal); G89.29 Other chronic pain; M54.9 Dorsalgia, unspecified; J44.9 Chronic obstructive pulmonary disease, unspecified; J45.909 Unspecified asthma, uncomplicated; F41.9 Anxiety disorder, unspecified; Z87.442 Personal history of urinary calculi; F12.90 Cannabis use, unspecified, uncomplicated; F15.90 Other stimulant use, unspecified, uncomplicated; F19.90 Other psychoactive substance use, unspecified, uncomplicated; Z90.49 Acquired absence of other specified parts of digestive tract; Z98.890 Other specified postprocedural states; Z98.51 Tubal ligation status; Z91.041 Radiographic dye allergy status; Z88.2 Allergy status to sulfonamides; Z88.5 Allergy status to narcotic agent; Z88.8 Allergy status to other drugs, medicaments and biological substances; Z79.899 Other long term (current) drug therapy; Z59.00 Homelessness unspecified
CPT/HCPCS: 36415; 71045; 80053; 81001; 83880; 85025; 96374; 96375; 96376; 99284; J1171; J2405